=== PATIENT | female | born 1940 | race Asian ===

== ENCOUNTER 2024-09-07 16:55 | Inpatient (IN) | payer MEDICARE, BC ==
[~2024-09-07] VITALS: Ht 162.6 cm; Wt 69.9 kg
[2024-09-07 17:27] LABS: BASOPHILS % 0.6 % (0.0-2.0); DIFFERENTIAL COMMENT 0; EOSINOPHILS % 1.8 % (0.0-5.0); HEMATOCRIT. 38.3 % (36.0-48.0); HEMOGLOBIN. 12.6 g/dL (12.0-16.0); LYMPHOCYTES % 17.6 % (20.0-50.0); MEAN CORPUSCULAR HGB CONC 32.9 g/dL (31.0-37.0); MEAN CORPUSCULAR VOLUME 100.1 fL (81.0-99.0); MEAN PLATELET VOLUME 7.4 fl (7.4-10.4); MONOCYTES % 4.1 % (2.0-8.0); NEUTROPHILS % 75.9 % (40.0-76.0); PLATELET 149 x1000/uL (130-400); RED BLOOD CELL COUNT 3.83 mill/uL (4.2-5.4); RED CELL DISTRIBUTION WIDTH 15.8 % (11.6-14.6); WHITE BLOOD COUNT 5.9 x1000/uL (4.5-11.0)
[2024-09-07 17:33] LABS: CHLORIDE 96 mEq/L (98-107); POTASSIUM 3.8 mEq/L (3.5-5.1); SODIUM 131 mEq/L (136-145)
[2024-09-07 17:34] LABS: CARBON DIOXIDE 28 mEq/L (21-32)
[2024-09-07 17:39] LABS: GLUCOSE 263 mg/dL (70-105)
[2024-09-07 17:40] LABS: UREA NITROGEN BLOOD 33 mg/dL (9-23)
[2024-09-07 17:45] LABS: PROTHROMBIN TIME 11.4 sec (9.6-11.0)
[2024-09-07 17:46] LABS: TROPONIN I HIGH SENSITIVITY 86 ng/L (3.0-34)
[2024-09-07 18:12] LABS: BG BASE EXCESS 0.3 mmol/L (-2.0-3.0); BG DEOXYHEMOGLOBIN 11.2 % (0.0-5.0); BG FRACTION INSPIRED OXYGEN 40; BG HCO3 ACT 28.5 mmol/L (21.0-28.0); BG METHEMOGLOBIN 0.2 % (0.5-1.5); BG OXYGEN SATURATION 88.7 % (94.0-98.0); BG OXYHEMOGLOBIN 87.6 % (94.0-98.0); BG PCO2 62.4 mmHg (32.0-45.0); BG PH 7.277 (7.350-7.450); BG SAMPLE SITE RIGHT RADIAL; BG TOTAL HEMOGLOBIN 13.5 g/dL (12.0-16.0); BG VENT MODE NASAL CANNULA
[2024-09-07] MEDS: HYDRALAZINE 20MG/ML VIAL IV ONE (18:29)
[2024-09-07 18:37] VITALS: RESP 30
[2024-09-07] MEDS ORDERED: GUAIFENESIN 200MG/10ML SUGAR FREE UDC PO PRN (18:45)
[2024-09-07] MEDS ORDERED: ASPIRIN 325MG EC TABLET PO ONE (18:45)
[2024-09-07] MEDS ORDERED: DEXTROSE 50% WATER 50ML SYRINGE IV PRN (18:45)
[2024-09-07] MEDS ORDERED: ACETAMINOPHEN 325MG TABLET PO PRN ×2 (18:45)
[2024-09-07] MEDS ORDERED: DOCUSATE SODIUM 100MG CAPSULE PO PRN (18:45)
[2024-09-07] MEDS ORDERED: ONDANSETRON HCL 4MG/2ML INJ IV PRN (18:45)
[2024-09-07] MEDS ORDERED: ASPIRIN 325MG EC TABLET PO NR (19:15)
[2024-09-07] MEDS: NITROGLYCERIN 0.4MG TABLET SL SL PRN (19:39)
[2024-09-07 19:45] VITALS: RESP 33
[2024-09-07] MEDS: IPRATROPIUM/ALBUTEROL 0.5-3(2.5)MG/3ML NEB HHN PRN (19:45)
[2024-09-07 20:28] LABS: PHOSPHORUS 4.2 mg/dL (2.5-4.9)
[2024-09-07 20:30] LABS: BG CARBOXYHEMOGLOBIN 0.4 % (0.5-1.5); BG DEOXYHEMOGLOBIN 2.8 % (0.0-5.0); BG FRACTION INSPIRED OXYGEN 50; BG HCO3 ACT 24.9 mmol/L (21.0-28.0); BG METHEMOGLOBIN 0.3 % (0.5-1.5); BG OXYGEN SATURATION 97.2 % (94.0-98.0); BG OXYHEMOGLOBIN 96.5 % (94.0-98.0); BG PCO2 37.3 mmHg (32.0-45.0); BG PH 7.443 (7.350-7.450); BG PO2 88.4 mmHg (83.0-108.0); BG SAMPLE SITE RIGHT RADIAL; BG TOTAL HEMOGLOBIN 12.6 g/dL (12.0-16.0); BG VENT MODE MASK - BIPAP
[2024-09-07] MEDS: FAMOTIDINE 20MG TABLET PO SCH (21:31)
[2024-09-07] MEDS: ATORVASTATIN CALCIUM 40MG TABLET PO SCH (21:33)
[2024-09-07] MEDS: CARVEDILOL 3.125 MG TABLET PO SCH (21:34)
[2024-09-07] MEDS: BLOOD SUGAR DIAGNOSTIC STRIP TEST SCH (21:40)
[2024-09-07] MEDS: INSULIN LISPRO 100 UNITS/ML SUBCUT SCH (21:45)
[2024-09-07 23:12] LABS: CREATINE KINASE MB FRACTION 4.9 ng/mL (0.5-3.6)
[2024-09-07 23:16] VITALS: RESP 20
[2024-09-07] MEDS: IOHEXOL-350 100 ML BOTTLE ONE (23:51)
[2024-09-08] VITALS (20 sets, daily range): BP systolic 119–167; BP diastolic 62–92; PULSE 62–82; RESP 13–27; TEMP 36.44736–36.89184; O2SAT 95–100
[2024-09-08 05:54] LABS: POTASSIUM 3.8 mEq/L (3.5-5.1)
[2024-09-08 05:56] LABS: CALCIUM 8.8 mg/dL (8.7-10.4)
[2024-09-08 06:00] LABS: CREATININE 4.5 mg/dL (0.6-1.0)
[2024-09-08 06:01] LABS: CREATINE KINASE MB FRACTION 5.3 ng/mL (0.5-3.6)
[2024-09-08 06:18] LABS: HEPATITIS B SURFACE AB 3.6 mIU/mL (<10)
[2024-09-08 06:30] LABS: HEPATITIS B SURFACE ANTIGEN NEGATIVE (Negative)
[2024-09-08 06:39] LABS: HEMATOCRIT 37.4 % (36.0-48.0); HEMOGLOBIN 11.9 g/dL (12.0-16.0); MEAN CORPUSCULAR HEMOGLOBIN 32.1 pg (28.0-32.0); MEAN CORPUSCULAR HGB CONC 31.7 g/dL (31.0-37.0); MEAN CORPUSCULAR VOLUME 101.3 fL (81.0-99.0); PLATELET 122 x1000/uL (130-400); RED BLOOD CELL COUNT 3.69 mill/uL (4.2-5.4); RED CELL DISTRIBUTION WIDTH 16.1 % (11.6-14.6); WHITE BLOOD COUNT 4.7 x1000/uL (4.5-11.0)
[2024-09-08] MEDS ORDERED: ENOXAPARIN 30MG/0.3ML SYR SUBCUT SCH (09:00)
[2024-09-08] MEDS ORDERED: ASPIRIN 81MG TABLET PO SCH (09:00)
[2024-09-08 09:13] LABS: T4 FREE 1.5 ng/dL (0.89-1.76)
[2024-09-08 09:15] LABS: THYROID STIMULATING HORMONE 2.17 uIU/mL (0.55-4.78)
[2024-09-08] MEDS: ENOXAPARIN 80MG/0.8ML SYR SUBCUT SCH (10:05)
[2024-09-08] MEDS: LOSARTAN 25 MG TABLET PO SCH (10:40)
[2024-09-08] MEDS: ASPIRIN 81MG TABLET PO SCH (11:33)
[2024-09-08 11:34] LABS: BG BASE EXCESS 2.7 mmol/L (-2.0-3.0); BG CARBOXYHEMOGLOBIN 0.6 % (0.5-1.5); BG DEOXYHEMOGLOBIN 4.7 % (0.0-5.0); BG FRACTION INSPIRED OXYGEN 30; BG HCO3 ACT 27.6 mmol/L (21.0-28.0); BG METHEMOGLOBIN 0.3 % (0.5-1.5); BG OXYGEN SATURATION 95.3 % (94.0-98.0); BG OXYHEMOGLOBIN 94.4 % (94.0-98.0); BG PCO2 43.5 mmHg (32.0-45.0); BG PO2 73.4 mmHg (83.0-108.0); BG SAMPLE SITE RIGHT RADIAL; BG TOTAL HEMOGLOBIN 12.8 g/dL (12.0-16.0); BG VENT MODE NASAL CANNULA
[2024-09-08 17:01] LABS: CREATINE KINASE 53 IU/L (34-145)
[2024-09-08 17:08] LABS: TROPONIN I HIGH SENSITIVITY 688 ng/L (3.0-34)
[2024-09-08] MEDS: CLONIDINE 0.1MG TABLET PO PRN (17:22)
[2024-09-08] MEDS: FLUTICASONE PROPIONATE 50MCG/SPRAY BOTTLE BOTHNSTRLS SCH (21:02)
[2024-09-08 22:14] LABS: TROPONIN I HIGH SENSITIVITY 645 ng/L (3.0-34)
[2024-09-09] VITALS (11 sets, daily range): BP systolic 117–185; BP diastolic 63–91; PULSE 55–70; RESP 14–28; TEMP 36.61404–37.05852; O2SAT 96–100
[2024-09-09 06:54] LABS: CREATINE KINASE 43 IU/L (34-145)
[2024-09-09 07:42] LABS: TROPONIN I HIGH SENSITIVITY 449 ng/L (3.0-34)
[2024-09-09 08:44] LABS: HEMATOCRIT 33.6 % (36.0-48.0); MEAN CORPUSCULAR HEMOGLOBIN 32.9 pg (28.0-32.0); MEAN CORPUSCULAR HGB CONC 32.6 g/dL (31.0-37.0); MEAN CORPUSCULAR VOLUME 100.7 fL (81.0-99.0); PLATELET 118 x1000/uL (130-400); RED BLOOD CELL COUNT 3.34 mill/uL (4.2-5.4); RED CELL DISTRIBUTION WIDTH 16.2 % (11.6-14.6); WHITE BLOOD COUNT 3.5 x1000/uL (4.5-11.0)
[2024-09-09 08:47] LABS: CALCIUM 8.7 mg/dL (8.7-10.4)
[2024-09-09 08:51] LABS: CREATININE 4.6 mg/dL (0.6-1.0)
[2024-09-09] MEDS: LOSARTAN 50 MG TABLET PO SCH (09:00)
[2024-09-09] MEDS ORDERED: IODIXANOL 320MG/ML 100 ML BOTTLE IV ONE (14:15)
[2024-09-09] MEDS ORDERED: LIDOCAINE HCL 1% 20ML VIAL ONE (14:15)
[2024-09-09] MEDS ORDERED: MIDAZOLAM HCL 2 MG/2 ML VIAL ONE (14:15)
[2024-09-09] MEDS ORDERED: FENTANYL CITRATE/PF 50MCG/ML 2ML VIAL ONE (14:15)
[2024-09-09] MEDS ORDERED: HEPARIN 1000 UNITS/ML 10ML ONE (14:15)
[2024-09-09] MEDS ORDERED: ATROPINE SULFATE 1MG/10ML SYR IV PRN (15:45)
[2024-09-10] VITALS (21 sets, daily range): BP systolic 126–182; BP diastolic 52–139; PULSE 55–66; RESP 13–27; TEMP 36.00288–37.00296; O2SAT 92–99
[2024-09-10 07:32] LABS: POTASSIUM 4.2 mEq/L (3.5-5.1)
[2024-09-10 07:33] LABS: CALCIUM 8.5 mg/dL (8.7-10.4)
[2024-09-10 08:09] LABS: CREATININE 5.6 mg/dL (0.6-1.0)
[2024-09-10 08:23] LABS: HEMATOCRIT 34.1 % (36.0-48.0); HEMOGLOBIN 10.8 g/dL (12.0-16.0); MEAN CORPUSCULAR HEMOGLOBIN 32.4 pg (28.0-32.0); MEAN CORPUSCULAR HGB CONC 31.8 g/dL (31.0-37.0); MEAN CORPUSCULAR VOLUME 101.9 fL (81.0-99.0); PLATELET 111 x1000/uL (130-400); RED BLOOD CELL COUNT 3.34 mill/uL (4.2-5.4); RED CELL DISTRIBUTION WIDTH 15.9 % (11.6-14.6); WHITE BLOOD COUNT 4.2 x1000/uL (4.5-11.0)
[2024-09-10] MEDS: HYDRALAZINE HCL 50MG TABLET PO SCH (20:21)
[2024-09-11] VITALS (8 sets, daily range): BP systolic 126–154; BP diastolic 52–75; PULSE 53–72; RESP 14–26; TEMP 36.61404–36.72516; O2SAT 95–100
[2024-09-11] MEDS ORDERED: HYDR50TA39 PO (11:13)
[2024-09-11] MEDS ORDERED: ASPI-1160 PO (11:13)
== END 2024-09-11 12:34 | disposition home or self-care (01) | DRG 280 ==
LOC: ER 16:55 → 5EST 17:51 → EDBEDREQ 17:53 → EDBEDREQSVC 18:48 → EDBEDREQ 18:48
PROVIDERS: ADMIT Internal Medicine; ATTEND Internal Medicine
PROC: 5A09357 Assistance with Respiratory Ventilation, Less than 24 Consecutive Hours, Continuous Positive Airway Pressure (ICD-10-PCS; principal; 2024-09-07)
PROC: 5A1D70Z Performance of Urinary Filtration, Intermittent, Less than 6 Hours Per Day (ICD-10-PCS; 2024-09-08)
PROC: 4A023N7 Measurement of Cardiac Sampling and Pressure, Left Heart, Percutaneous Approach (ICD-10-PCS; 2024-09-09)
PROC: B211YZZ Fluoroscopy of Multiple Coronary Arteries using Other Contrast (ICD-10-PCS; 2024-09-09)
PROC: B215YZZ Fluoroscopy of Left Heart using Other Contrast (ICD-10-PCS; 2024-09-09)
PROC: 5A1D70Z Performance of Urinary Filtration, Intermittent, Less than 6 Hours Per Day (ICD-10-PCS; 2024-09-10)
DX: I21.4 Non-ST elevation (NSTEMI) myocardial infarction (principal); I50.33 Acute on chronic diastolic (congestive) heart failure; J96.02 Acute respiratory failure with hypercapnia; N18.6 End stage renal disease; J96.01 Acute respiratory failure with hypoxia; I13.2 Hypertensive heart and chronic kidney disease with heart failure and with stage 5 chronic kidney disease, or end stage renal disease; I16.9 Hypertensive crisis, unspecified; E87.29 Other acidosis; J81.1 Chronic pulmonary edema; I27.20 Pulmonary hypertension, unspecified; E87.70 Fluid overload, unspecified; E11.22 Type 2 diabetes mellitus with diabetic chronic kidney disease; E78.5 Hyperlipidemia, unspecified; D69.6 Thrombocytopenia, unspecified; I25.10 Atherosclerotic heart disease of native coronary artery without angina pectoris; K59.00 Constipation, unspecified; Z79.4 Long term (current) use of insulin; Z79.82 Long term (current) use of aspirin; Z99.2 Dependence on renal dialysis; Z86.73 Personal history of transient ischemic attack (TIA), and cerebral infarction without residual deficits
CPT/HCPCS: 12001; 36415; 36600; 71045; 71275; 80048; 80061; 82375; 82550; 82553; 82805; 82962; 83036; 83605; 83735; 83880; 84100; 84439; 84443; 84484; 85025; 85027; 85379; 86706; 86850; 86900; 87340; 90935; 93005; 93306; 93458; 93970; 94640; 94660; 97161; 97165; 99284; 99291; C1769; C1887; C1893; J0360; J1644; J1650; J1815; J2250; J3010; J3490; Q9967

== ENCOUNTER 2024-09-11 22:03 | Emergency (ER) | payer MEDICARE, BC ==
[~2024-09-11] VITALS: Ht 162.6 cm; Wt 62.5 kg
[2024-09-11] MEDS: LIDOCAINE HCL/EPINEPHRINE 1%-EPI 1:100,000 20ML VIAL INFIL ONE (00:30)
[~2024-09-11 22:03] MED LIST: ASPI-1160 PO; HYDR50TA39 PO
[2024-09-11 22:15] VITALS: O2SAT 98
[2024-09-12 00:09] LABS: BASOPHILS % 0.5 % (0.0-2.0); DIFFERENTIAL COMMENT 0; EOSINOPHILS % 1.8 % (0.0-5.0); HEMATOCRIT. 34.7 % (36.0-48.0); HEMOGLOBIN. 11.5 g/dL (12.0-16.0); LYMPHOCYTES % 14.4 % (20.0-50.0); MEAN CORPUSCULAR HEMOGLOBIN 33.4 pg (28.0-32.0); MEAN CORPUSCULAR HGB CONC 33.2 g/dL (31.0-37.0); MEAN CORPUSCULAR VOLUME 100.6 fL (81.0-99.0); MEAN PLATELET VOLUME 8.2 fl (7.4-10.4); MONOCYTES % 8.8 % (2.0-8.0); NEUTROPHILS % 74.5 % (40.0-76.0); PLATELET 135 x1000/uL (130-400); RED BLOOD CELL COUNT 3.45 mill/uL (4.2-5.4); RED CELL DISTRIBUTION WIDTH 15.6 % (11.6-14.6); WHITE BLOOD COUNT 4.1 x1000/uL (4.5-11.0)
[2024-09-12 00:11] LABS: POTASSIUM 4.2 mEq/L (3.5-5.1)
[2024-09-12 00:13] LABS: CALCIUM 8.8 mg/dL (8.7-10.4)
[2024-09-12 00:20] LABS: PARTIAL THROMBOPLASTIN TIME 30.9 sec (23.4-31.0)
[2024-09-12 00:30] VITALS: TEMP 37.05852
[2024-09-12 00:39] LABS: CREATININE 7.1 mg/dL (0.6-1.0)
[2024-09-12 01:22] VITALS: BP 158/68; PULSE 78; RESP 20; O2SAT 95
== END 2024-09-12 01:14 | disposition home or self-care (01) ==
LOC: ER 22:03
DX: T82.838A Hemorrhage due to vascular prosthetic devices, implants and grafts, initial encounter (principal); I12.0 Hypertensive chronic kidney disease with stage 5 chronic kidney disease or end stage renal disease; E11.22 Type 2 diabetes mellitus with diabetic chronic kidney disease; N18.6 End stage renal disease; Z99.2 Dependence on renal dialysis; Z90.49 Acquired absence of other specified parts of digestive tract; Z79.82 Long term (current) use of aspirin; X58.XXXA Exposure to other specified factors, initial encounter
CPT/HCPCS: 99284; 80048; 85025; 85610; 85730; 86850; 86900; 86901; 36415; 12001; 93005 ×2; J3490 ×2